=== PATIENT | female | born 1955 | race Caucasian/White ===

== ENCOUNTER 2025-01-20 18:48 | Inpatient (IN) | payer OTHER, SELFPAY ==
[2025-01-20] VITALS (10 sets, daily range): BP systolic 155–211; BP diastolic 76–97; BMI 30.3; BMI 29.5
[2025-01-20 14:43] LABS: % Basophils 0.2 % (0-2); % Immature Granulocytes 0.4 % (0-0.5); % Lymphocytes 12.2 % (20.5-51.1); % Monocytes 6.1 % (1.7-9.3); % Neutrophils 81.1 % (42.2-75.2); Absolute Immature Granulocytes 0.1 10^3/uL (0-0.05); Absolute Neutrophils 13.1 10^3/uL (1.4-6.5); Hematocrit 41.5 % (37.0-47.0); Hemoglobin 13.5 g/dL (12.0-16.0); Mean Corp Hgb Conc. 32.5 g/dL (33.0-37.0); Mean Corpuscular Hgb 23.5 pg (27.0-31.0); Mean Corpuscular Volume 72.2 fL (81.0-99.0); Mean Platelet Volume 9.2 fL (7.4-10.4); Nucleated Red Blood Cells % 0 %; Platelet Count 356 10^3/uL (130-400); Red Blood Cell Count 5.75 10^6/uL (4.20-5.40); Red Cell Dist. Width 15.3 % (11.5-14.5); White Blood Cell Count 16.1 10^3/uL (4.8-10.8)
[2025-01-20 14:55] LABS: INR 1.06; PT 14.1 Sec (11.4-14.6)
[2025-01-20 15:08] LABS: Troponin I 0.021 ng/ml
[2025-01-20 15:17] LABS: ALT (SGPT) 19 U/L (0-35); AST (SGOT) 22 U/L (14-36); Albumin 4.5 g/dl (3.5-5.0); Alkaline Phosphatase 80 U/L (38-126); Blood Urea Nitrogen 33 mg/dl (7-17); Carbon Dioxide 22 mmol/L (22-30); Chloride 108 mmol/L (98-107); Estimated Creatinine Clearance 82 ml/min; Glucose 137 mg/dl (70-99); Potassium 3.1 mmol/L (3.5-5.1); Sodium 141 mmol/L (135-145); Total Bilirubin 1.3 mg/dl (0.2-1.3); Total Protein 6.9 g/dl (6.3-8.2); eGFR > 60.00
[2025-01-20] MEDS: PROTONIX IV 40 MG IV ×2 (15:33→21:02)
[2025-01-20] MEDS: NSS 1000 IV ×2 (15:34→17:22)
--- NOTE | 2025-01-20 15:42 | ED.GENMED ---
History of Present Illness
General
Chief Complaint: Chest Pain
Time Seen by Provider: 01/20/25 15:07
History of Present Illness
History of Present Illness:
69-year-old female with history of diabetes on Ozempic, GERD, hypertrophic cardiomyopathy presenting to the emergency department for midsternal chest discomfort. Patient reports for the past 3 days she has had constant sternal chest pain. She
describes the pain as burning/pressure, feels like something is sitting on her. She has had persistent nausea and vomiting. Denies known coronary artery disease, does report history of hypertrophic cardiomyopathy. Does note some shortness of
breath with the symptoms. She has been unable to keep anything down since onset. Reports that at onset, took an elevated dose of Ozempic. She had previously been on 1 mg, however notes that she was not administering it correctly and some of the
medication was oozing out of the site. She talked to a prescribing nurse who showed her how to inject correctly. When she injected on Monday, it was an elevated dose of 2 mg and she received the full dose. She notes that her is on dosing
schedule and he also was feeling nauseous with vomiting. Reports abdominal surgery history of cholecystectomy and total hysterectomy. Denies additional acute medical complaints
Phy Exam
Physical Exam
Physical Exam:
General: Well-appearing, no clinical signs of dehydration, nontoxic and in no acute distress
HEENT: protecting airway
Neck: appears supple
CV: Normal heart rate, regular rhythm
Resp: No accessory muscle use, no increased work of breathing, lungs clear to auscultation bilaterally
Abd: Soft and non-distended, mild tenderness to the epigastric abdomen
Extremities: No deformities, no swelling
Neuro: alert, no focal neurologic deficit
: deferred
Rectal: deferred
Psych: Normal affect
Skin: Intact
Scores
Heart Score for Chest Pain Patients
STEMI patient?: No
History: Slightly or Non-Suspicious
ECG: Nonspecific Repolarization
Age: >/= 65 years
Risk Factors: 1 or 2 Risk Factors
Troponin: </= Normal Limit
Heart Score for Chest Pain Patients: 4
Heart Score Risk: 20.3% MACE over next 6 weeks
Course
Orders/Labs/Results
Orders:
Orders
01/20/25 14:32
Electrocardiogram (*1) Urgent
Reason for Study: Chest Pain
EKG- Treatment ONCE
01/20/25 14:34
Complete Blood Count/With Diff Urgent
Comprehensive Metabolic Panel Urgent
Lipase Urgent
Comment: ADD ON
Prothrombin Time Urgent
Troponin I Urgent
01/20/25 15:23
Add On- LAB Urgent
Tests Added?: lipase
0.9% Sodium Chloride 1000 ml [Nss] 1,000 ml IV BOLUS
Pantoprazole [Protonix IV] 40 mg IV NOW STA
01/20/25 17:00
Potassium Chloride [KCl] 40 meq 0.9% Sodium Chloride 250 ml [Nss] 250 ml IV NOW
01/20/25 17:09
0.9% Sodium Chloride 1000 ml [Nss] 1,000 ml IV BOLUS
Labetalol HCl [Trandate] 20 mg IV NOW STA
Morphine Sulfate 4 mg IV NOW STA
01/20/25 17:30
Electrocardiogram (*1) Urgent
Reason for Study: Chest Pain
Troponin I Urgent
Abnormal Lab Results
01/20/25
14:34
WBC 16.1 H 10^3/uL
(4.8-10.8)
RBC 5.75 H 10^6/uL
(4.20-5.40)
MCV 72.2 L fL
(81.0-99.0)
MCH 23.5 L pg
(27.0-31.0)
MCHC 32.5 L g/dL
(33.0-37.0)
RDW 15.3 H %
(11.5-14.5)
Abs Immat Gran (auto) 0.1 H 10^3/uL
(0-0.05)
Absolute Neuts (auto) 13.1 H 10^3/uL
(1.4-6.5)
Absolute Monos (auto) 1.0 H 10^3/uL
(0.1-0.6)
Neutrophils % 81.1 H %
(42.2-75.2)
Lymphocytes % 12.2 L %
(20.5-51.1)
Potassium 3.1 L mmol/L
(3.5-5.1)
Chloride 108 H mmol/L
(98-107)
BUN 33 H mg/dl
(7-17)
Glucose 137 H mg/dl
(70-99)
01/20/25 14:34
01/20/25 14:34
Vital Signs
Initial and Last Documented VS:
Initial Vital Signs
Temp Pulse Resp BP Pulse Ox
98.7 F 75 20 161/97 98
01/20/25 14:35 01/20/25 14:35 01/20/25 14:35 01/20/25 14:35 01/20/25 14:35
Last Documented Vital Signs
Temp Pulse Resp BP Pulse Ox
98.7 F 75 20 161/97 98
01/20/25 14:35 01/20/25 14:35 01/20/25 14:35 01/20/25 14:35 01/20/25 14:35
MDM/Problems Addressed
MDM/Problems Addressed:
69-year-old female with history of diabetes, GERD, hypertrophic cardiomyopathy presenting for midsternal chest discomfort for the past 4 days. Vital signs are significant for mild hypertension
On exam patient is resting comfortably, no acute distress. Generalized discomfort on palpation to the midepigastric region. EKG reviewed given patient's complaint of chest discomfort. No obvious ischemic abnormality. There is prolonged QTc.
Patient's nausea and vomiting for the past 3 to 4 days, with suspicion for dehydration, possible electrolyte derangement. Patient did receive Zofran en route by medics. Will hold any additional QTc prolonging agents. Lower suspicion for ACS.
Patient notes that symptoms started after taking increased dose of Ozempic. Suspect gastritis versus pancreatitis. Started patient IV fluids, pantoprazole. Plan for laboratory analysis including lipase. Will continue to closely monitor
17:10 -patient's lipase is within normal limits. Mild leukocytosis, however suspect to be reactive from dehydration. Patient also with hypokalemia, suspected to be from dehydration. Patient's blood pressure still very elevated, notes that she has
been able to tolerate her medications for the past 3 days. She is not having any significant symptom relief. Will administer morphine, additional fluids, labetalol for blood pressure control with plan for admission for intractable nausea and
vomiting
*Pulse Oximetry
Patient hypoxic: no
Comment: 98%
*EKG
Interpreted by ED Provider?: Yes
EKG Intrepretation Date: 01/20/25
EKG Intrepretation Time: 15:48
Interpretation: abnormal
Comparison EKG: no comparison EKG present
Heart Rate: 76
Rate: normal
Rhythm: sinus
[place]: normal axis
Interval: long QT
QRS Pattern: normal QRS
Ischemia: no ischemia
*Critical Care Note
Total Time (30-74mins, 75-104mins- exclusive of procedures): Not Applicable
ED Attending Note
-
Portions of this chart may have been created with voice recognition software.� Occasional wrong word or��sound alike� substitutions may have occurred due to the inherent limitations of voice recognition software.
Discharge Plan
Interventions
Interventions:
*Risk Screen - Suicide Last Done: 01/20/25 14:35
*General Assessment Last Done: 01/20/25 14:35
*Neglect/Abuse Screening Last Done: 01/20/25 14:35
ED- Cardiac Assessment Last Done: 01/20/25 14:35
Discharge Date and Time
Print Language: KOREAN
[2025-01-20 15:44] LABS: Lipase 118 U/L (23-300)
[2025-01-20] MEDS: TRANDATE 20 MG IV ×2 (17:23→19:22)
[2025-01-20] MEDS: MORPHINE SULFATE 4 MG IV (17:23)
--- NOTE | 2025-01-20 17:37 | HPS.HSE ---
Family Physician
-
Family Physician:
Chief Complaint
-
Chest pain
History of Present Illness
69-year-old female who started with increasing dose of her Ozempic and started having chest pain Monday. More like a pressure/burning and a 'hot elephant sitting' on her chest. Patient states that she has been on Ozempic for the past 4 to 5 months
but she does not think she was injecting it the right way. On Monday her dose was increased to 2 mg and she took the first dose the right way. Patient thinks since she was not getting the lower doses properly this must have been too much for her.
She started vomiting and had acid reflux symptoms. Also started with chest pain. Stated that she has not been able to keep any of her medicines down.
Patient has a history of HOCM and was on Camzyos for 6 months when she was on a free trial. She did not like the weight made her feel dizzy. She she was following up with Dr. Aldana and was referred Dr. Garcia who is a HOCM specialist and runs
a clinic ( [facility]). Patient has been on metoprolol 50 mg which she thinks she could not keep down because of the vomiting.
Medical History
Past Medical History
Past Medical History: Reports Other
Additional Past Medical History:
HOCM, hypertension, hyperlipidemia, GERD, diabetes, anxiety and depression
Past Surgical History: Reports Other
Additional Past Surgical History:
Cholecystectomy, hysterectomy, parathyroidectomy
Social History
Tobacco: Former Smoker (quit 40 years ago)
Alcohol: None
Drug: None
Personal:
Living: With Family
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
Family History
Family History: Cancer (Mother lung cancer) and Other (Father with history of CHF)
Allergies / Home Medications
Allergies reflects when Allergies were last updated in [facility].
Home Medications with original date entered in [facility]
Allergy/Medication List:
Allergies
Allergy/AdvReac Type Severity Reaction Status Date / Time
No Known Allergies Allergy Verified 01/20/25 14:32
Home Medications
Lactobac no.2-Bifidobac no.1-S. thermo 112.5 billion cell capsule (Visbiome) 1 cap PO DAILY 01/20/25
atorvastatin 10 mg tablet (Lipitor) 10 mg PO HS 01/20/25
bupropion HCl 300 mg 24 hr tablet, extended release (Wellbutrin XL) 300 mg PO DAILY 01/20/25
citalopram 10 mg tablet (Celexa) 10 mg PO HS 01/20/25
meloxicam 15 mg tablet 15 mg PO BIDPRN PRN MILD PAIN 01/20/25
metoprolol succinate 50 mg tablet,extended release 24 hr (Toprol XL) 50 mg PO DAILY 01/20/25
semaglutide 1 mg/dose (4 mg/3 mL) subcutaneous pen injector (Ozempic) 1 mg SC FR 01/20/25
therapeutic multivitamin 1 tab PO DAILY 01/20/25
Review of Systems
-
A 12 point ROS was completed and negative except as noted: Yes
Cardiac: Reports Chest Pain
Abdomen/GI: Reports Abdominal Pain, Nausea and Vomiting
Neurological: Denies Headache, Weakness or Numbness
Physical Exam
Vital Signs
Vital Signs
Temp Pulse Resp BP Pulse Ox
98.7 F 72 12 211/84 98
01/20/25 14:35 01/20/25 17:00 01/20/25 17:00 01/20/25 17:00 01/20/25 17:00
Physical Exam
General: Conversant
Respiratory: Clear
Cardiac: S1/S2, Regular Rhythm and Murmur (apex)
GI: Soft and Tender (epigastric )
Musculoskeletal: No Edema
Neuro: AO x 3 and Nonfocal/grossly intact
Laboratory Results
-
01/20/25 14:34
01/20/25 14:34
Laboratory Results
PT 14.1 Sec (11.4-14.6) 01/20/25 14:34
INR 1.06 01/20/25 14:34
Total Bilirubin 1.3 mg/dl (0.2-1.3) 01/20/25 14:34
AST 22 U/L (14-36) 01/20/25 14:34
ALT 19 U/L (0-35) 01/20/25 14:34
Alkaline Phosphatase 80 U/L (38-126) 01/20/25 14:34
Troponin I 0.021 ng/ml 01/20/25 14:34
Lipase 118 U/L (23-300) 01/20/25 14:34
Data Reviewed
-
Medical Tests (Nuc Med, Echo, EKG etc): Image Personally Visualized and interpreted (EKG-sinus rhythm, QTc 537, left atrial enlargement)
Impression/Plan
-
IMPRESSION/PLAN:
# Chest pain/epigastric pain
With elevated blood pressure will get a CTA chest and abdomen
Follow repeat EKG and troponin
Admit to stepdown
# Intractable Nausea and vomiting
Possibly secondary to Ozempic
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
Last endoscopy was 4-5 years ago
Continue PPI twice daily and Pepcid
Advised to stop meloxicam
Would not use any QTc prolonging medicines for antinausea.
Unfortunately we do not have many choices but to use Tigan.
# Hypertensive urgency
Likely secondary to inability to keep medicines down and stress
Give another dose of labetalol
Avoid vasodilators with HOCM
If not getting better may need a labetalol drip
Increase metoprolol to 50 twice daily per discussion with cardiology
# Prolonged QTc
Replace potassium
Check magnesium-added on
Hold Celexa
Repeat EKG noted
One more ordered for later.
Avoid QTc prolonging medicines
# Hocm
Outpatient [employer] Dr. Aldana at [facility]
HOCM specialist Dr. Garcia [facility]
Patient was on Camzyos for a trial and then could not afford once that ran out.
Patient also felt that it was not helping her much and that it was making her dizzy.
She has been only on metoprolol
Check echo
Get OP Records
Cardiology evaluation
# Leukocytosis likely stress reaction from vomiting-follow
# Hypokalemia-replace potassium IV
# Hyperlipidemia-continue statin
# Diabetes-Hold Ozempic
Accu-Cheks and sliding scale coverage
# Depression-hold Celexa. Continue Wellbutrin for now
# Remote smoking history-quit 40 years ago
# DVT prophylaxis-Lovenox
# Full code
Discussed with cardiology
Time spent over 75 min
[2025-01-20] MEDS: KCL 270 MEQ IV (17:52)
[2025-01-20 18:42] LABS: Troponin I 0.023 ng/ml
--- NOTE | 2025-01-20 19:23 | EDRN ---
Report received, patient back from CT rechecked BP still elevated will give meds that are ordered, updated patient on bed status and will work on getting her to her room, no complaints at this time.
[2025-01-20 19:27] LABS: Magnesium 1.8 mg/dl (1.6-2.3)
--- NOTE | 2025-01-20 19:56 | EDRN ---
Report to Herber Davis in IMU
[2025-01-20] MEDS: D5LR 1000 IV (20:21)
[2025-01-20] MEDS: LIPITOR 10 MG PO (21:00)
[2025-01-20] MEDS: TOPROL XL 50 MG PO (21:00)
[2025-01-20] MEDS: NSS (PRESERVATIVE FREE) 10 ML IV (21:02)
[2025-01-20] MEDS: PEPCID 20 MG IV (21:02)
[2025-01-20] MEDS: NSS (PRESERVATIVE FREE) 8 ML IV (21:02)
[2025-01-20 23:53] LABS: Troponin I 0.022 ng/ml
[2025-01-21] VITALS (14 sets, daily range): BP systolic 109–180; BP diastolic 61–109; BMI 29.5
[2025-01-21] MEDS: TRANDATE 10 MG IV (00:04)
--- NOTE | 2025-01-21 00:32 | PTCARENOTE ---
received patient from ED via stretcher. Patient able to move from stretcher to bed. Patient pleasant and not complaining of pain at this time. Blood pressure is high, see MAR. Patient resting in bed with call gerardo in reach. assessment and vital
signs as charted.
[2025-01-21 05:08] LABS: Hemoglobin 10.9 g/dL (12.0-16.0); Mean Corpuscular Hgb 24.1 pg (27.0-31.0); Mean Corpuscular Volume 72.8 fL (81.0-99.0); Mean Platelet Volume 9.4 fL (7.4-10.4); Platelet Count 281 10^3/uL (130-400); Red Blood Cell Count 4.53 10^6/uL (4.20-5.40); Red Cell Dist. Width 15.3 % (11.5-14.5); White Blood Cell Count 10.9 10^3/uL (4.8-10.8)
[2025-01-21 05:48] LABS: Blood Urea Nitrogen 25 mg/dl (7-17); Calcium 8.2 mg/dl (8.4-10.2); Carbon Dioxide 23 mmol/L (22-30); Chloride 115 mmol/L (98-107); Estimated Creatinine Clearance 95 ml/min; Glucose 114 mg/dl (70-99); Magnesium 1.9 mg/dl (1.6-2.3); Potassium 3.5 mmol/L (3.5-5.1); Sodium 140 mmol/L (135-145); eGFR > 60.00
[2025-01-21 05:57] LABS: TSH 2.35 uIU/ml (0.47-4.68)
--- NOTE | 2025-01-21 07:20 | CON.CAR ---
Addendum entered and electronically signed by Alexis Wesley DO 01/21/25 13:21:
I saw and examined the patient.
The Automobile Body Repairer's note was reviewed and I agree with the note.
Comment:
Plan:
Her chest is atypical for cardiology. Troponin is within normal limits. her EKG does not show ischemic changes.
Her QT is prolonged. Replete potassium magnesium as necessary. Follow QT during hospitalization.
Check echocardiogram to evaluate left ventricular systolic function.
Records requested
She could be considered outpatient ischemic evaluation. A previous treadmill stress test from 2023 was low risk.
Her symptoms may be GI related. Consider GI evaluation of her symptoms.
CTA 01/20/2025 negative for dissection
She continues with beta-harinder for her hypertrophic cardiomyopathy. She was unable to afford Camzyos and it was stopped in August 2024.
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
Continue atorvastatin for hyperlipidemia.
HPI: 69-year-old female with h/o hypertrophic obstructive cardiomyopathy, diagnosed August 2023, hypertension, hyperlipidemia, diabetes mellitus, GERD, anxiety, depression who presents to [facility] ED on 01/20/2025 with substernal chest pain and
associated nausea and vomiting. Chest pain described as sharp/burning sensation. Symptoms started on 01/17/2025 after she increased Ozempic dose. She had 3 day h/o vomitting and nausea and worsened GERD symptoms, with associated worsening chest
pain that became extreme on day of presentation. Also c/o SOB.
She is on Ozempic and increased the dose on Monday01/17/2025 and started vomiting and had acid reflux symptoms with associated chest pain. She had been injecting the medication incorrectly for the past few months so believes she was not receiving
the correct dose prior to Monday.
In regards to her HOCM, was initially found to have a murmur on exam a few years ago. She was referred to a restaurant shift supervisor, Dr. Aldana at [facility], who ordered an echocardiogram that showed HOCM, which was confirmed by cardiac MRI. She was
initially on metoprolol She was referred to a HOCM specialist, Dr Garcia at [facility]. She was started on CAMZIOs, which she continued for 6 months with improvement in LVOT gradients per records from Dr. Garcia.. The cost was going to
increase to $8000 a month after she had been on it for 6 months and she was not able to afford this cost. She also did not feel well on current Camzyos, complaining of dizziness and nausea, and did not want to continue the medication. She
restarted metoprolol when she stopped Camzyos. She was interested in pursuing surgery and was referred to CT surgery with Dr. Alamo. Unclear if she saw him or not.
Original Note:
Consultation
Consultation Request
Date/Time Consultation Requested: 01/20/2025, 1819
Date/Time Consultation Performed: 01/21/2025, 720
Requesting Provider: Dr Triindad
Performing Provider: TILA Pak for [facility] Cardiology
Reason for Consultation: chest pain, HOCM
Medical History
-
Chief Complaint: chest pain
History of Present Illness:
69-year-old female with h/o hypertrophic obstructive cardiomyopathy, diagnosed August 2023, hypertension, hyperlipidemia, diabetes mellitus, GERD, anxiety, depression who presents to [facility] ED on 01/20/2025 with substernal chest pain and associated
nausea and vomitting. Chest pain described as a pressure/burning sensation. Symptoms started on 01/17/2025 after she increased Ozempic dose. She had 3 day h/o vomitting and nausea and worsened GERD symptoms, with associated worsening chest pain
that became extreme on day of presentation. Also c/o SOB.
She is on Ozempic and increased the dose on Monday01/17/2025 and started vomiting and had acid reflux symptoms with associated chest pain. She had been injecting the medication incorrectly for the past few months so believes she was not receiving
the correct dose prior to Monday.
In regards to her HOCM, was initially found to have a murmur on exam a few years ago. She was referred to a restaurant shift supervisor, Dr. Aldana at [facility], who ordered an echocardiogram that showed HOCM, which was confirmed by cardiac MRI. She was
initially on metoprolol She was referred to a HOCM specialist, Dr Garcia at [facility]. She was started on CAMZIOs, which she continued for 6 months with improvement in LVOT gradients per records from Dr. Garcia.. The cost was going to
increase to $8000 a month after she had been on it for 6 months and she was not able to afford this cost. She also did not feel well on current Camzyos, complaining of dizziness and nausea, and did not want to continue the medication. She
restarted metoprolol when she stopped Camzyos. She was interested in pursuing surgery and was referred to CT surgery with Dr. Alamo. Unclear if she saw him or not. She was thought to be low risk for sudden cardiac given age greater
than 60 years old and no traditional sudden cardiac arrest risk factors for SCA with only small amount of LGE on MRI with no aneurysm. She does not have children and there was no role for genetic testing for her her siblings were advised to be
screened with echo/EKG. SBE was advised.
ED workup:
CTA chest/abd: no dissection, no acute pathology, large hiatal hernia
trop 0.021--0.023--0.022
EKG: Normal sinus rhythm, QTc 535
Labs: Potassium 3.1, NA 141, BUN/creatinine 33/0.7, TSH 2.35, hemoglobin 13.5
Past medical history:
HOCM, diagnosed 08/2023
Hypertension
Hyperlipidemia
Diabetes mellitus
GERD
Anxiety
Depression
Hyperparathyroidism
Past Medical History
Past Medical History: Other
Past Surgical History: Cholecystectomy, Gynecological (REGINE) and Other (Parathyroid surgery)
Social History
Tobacco: Former Smoker (quit 40 yrs ago)
Alcohol: None
Drug: None
Personal:
Living: With Family
Employment: Retired
Family History
Family History: Other (Father at 88 with heart failure, mother with history of TAVR, at 84 from lung cancer)
Allergies / Home Medications
Allergy/AdvReac Type Severity Reaction Status Date / Time
No Known Allergies Allergy Verified 01/20/25 14:32
�Medication �Instructions �Recorded �Confirmed �Type
Lactobac no.2-Bifidobac no.1-S. 1 cap PO DAILY 01/20/25 01/20/25 History
thermo 112.5 billion cell capsule
(Visbiome)
atorvastatin 10 mg tablet (Lipitor) 10 mg PO HS 01/20/25 01/20/25 History
bupropion HCl 300 mg 24 hr tablet, 300 mg PO DAILY 01/20/25 01/20/25 History
extended release (Wellbutrin XL)
citalopram 10 mg tablet (Celexa) 10 mg PO HS 01/20/25 01/20/25 History
meloxicam 15 mg tablet 15 mg PO BIDPRN PRN MILD PAIN 01/20/25 01/20/25 History
metoprolol succinate 50 mg 50 mg PO DAILY 01/20/25 01/20/25 History
tablet,extended release 24 hr
(Toprol XL)
semaglutide 1 mg/dose (4 mg/3 mL) 1 mg SC FR 01/20/25 01/20/25 History
subcutaneous pen injector (Ozempic)
therapeutic multivitamin 1 tab PO DAILY 01/20/25 01/20/25 History
Review of Systems
-
History Source: Patient
All other systems: Negative unless noted
Physical Exam
Vital Signs
Temp Pulse Resp BP Pulse Ox
98.0 F 69 14 164/79 100
01/21/25 03:05 01/21/25 06:12 01/21/25 06:12 01/21/25 06:12 01/21/25 06:12
Lab Results
01/21/25 04:25
01/21/25 04:25
Troponin I 0.022 ng/ml 01/20/25 23:14
GEN: No distress, awake, Ox3
HEENT: supple, anicteric, mmm
LUNGS: CTA, no wheezes/rales
CV: Reg, S1/S2, 2/6 ASIM loudest LSB
ABD: soft, BS+, NT/ND
EXT: No edema
NEURO: Gross non-focal
SKIN: No rash
Impression / Plan
-
PCP: Dr. Ilsa Thomas, [facility]
Primary restaurant shift supervisor: Dr. Nilda alva, [facility]
HOCM specialists: Chandu Garcia, [facility],
Impression:
Chest pain
Nausea and vomiting
HOCM
Hypertension
GERD
Diabetes mellitus
Hypokalemia
Previous cardiovascular testing:
Echo 08/23/2024: On Camzyos 5 mg: Normal LV cavity size and hyperdynamic systolic function, LVEF 65%, basal septal LVH 15 mm, mild MR, mild NOLA, LVOT gradient of 11 mmHg at rest and 55 mmHg with Valsalva
Echo 08/2023: Normal LV cavity size with severe LV hypertrophy and hyperdynamic systolic function, LVEF greater than 65% gradient 36 mmHg, with Valsalva 99 mmHg, mild , mild AI, mild MR, small pericardial effusion, normal RV size and function.
Event monitor 02/2024: Normal sinus rhythm, PAC less than 0.1%, PVC 3%
Cardiac MRI 10/09/2023: Asymmetric septal hypertrophy with maximum wall thickness 17 mmHg and basal anterior septum, marked systolic anterior motion of the mitral valve leaflets with flow acceleration in the left ventricular outflow track. LVEF 63%,
late gadolinium enhancement noted at the RV insertion points more prominent at the anterior RV insertion point where the myocardium is thickest. LV extracellular volume is increased and measures 34%, normal RV volume with normal regional systolic
function, LAE, posterior directed jet of mild MR, trace circumferential pericardial effusion
Exercise treadmill stress test 08/2023, low likelihood of myocardial ischemia. Low exercise tolerance less than 5 METS.
Plan:
69-year-old female with h/o hypertrophic obstructive cardiomyopathy, diagnosed August 2023, hypertension, hyperlipidemia, diabetes mellitus, GERD, anxiety, depression who presents to [facility] ED on 01/20/2025 with substernal chest pain and associated
nausea and vomitting. Chest pain described as a pressure/burning sensation. Symptoms started on 01/17/2025 after she increased Ozempic dose. She had 3 day h/o vomitting and nausea and worsened GERD symptoms, with associated worsening chest pain
that became extreme on day of presentation. Also c/o SOB.
ED workup Included CTA chest and abdomen negative for dissection or acute pathology. Troponin detected but low. EKG with normal sinus rhythm with prolonged QT 535 ms, hypokalemia with potassium 3.1, repeat 3.5 after repletion with 40 mEq KCl IV.
1. Chest pain
- Occurred in setting of 3 to 4-day history of nausea and vomiting in setting of Ozempic use
- Troponin detectable but low
- No known history of CAD
-Treadmill stress test 2023 low likelihood CAD
-CTA 01/20/2025 negative for dissection
- EKG nonischemic but QT is prolonged
-Repeat troponin and EKG
-currently CP 95% resolved - rec'd IV Morphine 4 mg in ED
2. HOCM
- Diagnosed August 2023
- Had been on Camzyos for 6 months with improvement in LVOT gradients on med.
- Not able to afford Camzyos and felt poorly on it so stopped 08/2024
- Repeat echo today, already ordered
-Toprol uptitrated to 50 mg twice daily for better blood pressure control,may need to cont to uptitrate
-Follow-up with patient as to whether she saw surgeon regarding candidacy
-Patient reports she previously followed with doctors in [place] because she worked there but that she lives in [place] and now that she is retired she would like to find more local doctors.
- SBE prophylaxis
3. Hypokalemia
- Received 40 mEq KCl IV x 1 01/20/2025, initial K 3.1, up to3.5
-will administer additional KCL 40 meq IV now
-keep K>4, Mag >2 in setting of prolonged QT
-repeat EKG today- I ordered
-repeat BMP, Mag today-I ordered
4. prolonged QT
- QTc 535 ms on EKG 01/20/2025.
- Obtained EKG 08/2024 from previous restaurant shift supervisor which also comments on prolonged QT but I cannot fully interpret the EKG to see length of QT. Also EKG from 03/2024 comments QTc abnl
- EKG 3-day event monitor 02/2024 normal sinus rhythm with no significant arrhythmias, 3% PVCs
- Avoid QT prolonging agents
- Repeat EKG
5. Hyperlipidemia
-on atorvastatin 10 mg daily
-check FLP with morning labs - I ordered
Data Reviewed
-
EKG: Tracing Personally Visualized and interpreted
Labs: Labs Reviewed by me
Old Records: Requested and Reviewed
[2025-01-21] MEDS: WELLBUTRIN XL (24 hour extended release) 300 MG PO (08:49)
[2025-01-21] MEDS: TOPROL XL 50 MG PO ×2 (08:49→20:25)
[2025-01-21] MEDS: PROTONIX IV 40 MG IV ×2 (08:50→20:27)
[2025-01-21] MEDS: NSS (PRESERVATIVE FREE) 8 ML IV ×2 (08:50→20:27)
[2025-01-21] MEDS: PEPCID 20 MG IV ×2 (08:50→20:27)
[2025-01-21] MEDS: NSS (PRESERVATIVE FREE) 10 ML IV ×2 (08:51→20:27)
[2025-01-21] MEDS: KCL 270 MEQ IV (09:04)
--- NOTE | 2025-01-21 09:30 | PTCARENOTE ---
Patient AAOx3, up in chair. Going for echo. VSS. 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 Will closely
monitor.
--- NOTE | 2025-01-21 12:28 | CM ---
CM reviewed chart and met with pt at bedside. Lives with her , 1 story home, 5 [address] from front door, 3[address]STE from garage
Independent in ADLs and personal care at baseline, occasionally uses cane.
Denies financial insecurities, denies VN/SNF hx
Brother listed as emergency contact as her spouse does not have a cell phone.
Per nursing, pt independent throughout room.
PCP: Ilsa Thomas
Pharmacy: [facility]
Plan: Anticipate home, watch for VN/SNF referrals.
--- NOTE | 2025-01-21 12:57 | W.PN.HOSP.TC ---
Today's Communication/Plan
-
Needs more tighter blood pressure control
Await echo
Await cardiology plans
Patient is tolerating diet and no more having GI symptoms.
She is aware that she needs to get EGD done as outpatient. Continue PPI and Pepcid
Assessment / Plan
Assessment / Plan
69-year-old with nausea and vomiting
CTA-no dissection no acute pathology of chest and abdomen. Large hiatal hernia. Prior cholecystectomy. 5 mm nonobstructing left renal stone. Bilateral adrenal masses possibly benign adenomas nonemergent MRI recommended.
# Chest pain/epigastric pain
With elevated blood pressure will get a CTA chest and abdomen
Follow repeat EKG and troponin
Admit to stepdown
# Intractable Nausea and vomiting
Possibly secondary to Ozempic
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
Last endoscopy was 4-5 years ago
Continue PPI twice daily and Pepcid
Advised to stop meloxicam
Would not use any QTc prolonging medicines for antinausea.
Unfortunately we do not have many choices but to use Tigan.
Patient is feeling much better-tolerating a diet
# Hypertensive urgency
Likely secondary to inability to keep medicines down and stress
Avoid vasodilators with HOCM
Increase metoprolol to 50 twice daily
# Prolonged QTc
Replace potassium
Hold Celexa
# Hocm
Outpatient qc tech Dr. Aldana at [facility]
HOCM specialist Dr. Garcia [facility]
Patient was on Camzyos for a trial and then could not afford once that ran out.
Patient also felt that it was not helping her much and that it was making her dizzy.
She has been only on metoprolol
Check echo
Get OP Records-requested
Cardiology evaluation
# Leukocytosis likely stress reaction from vomiting-improving.
# Hypokalemia-replace potassium IV
# Hyperlipidemia-continue statin
# Diabetes-Hold Ozempic
Accu-Cheks and sliding scale coverage
# Depression-hold Celexa. Continue Wellbutrin for now. QTc is getting better
# Remote smoking history-quit 40 years ago
# DVT prophylaxis-Lovenox
# Full code
Discussed with cardiology
Anticipated Discharge: Within 24 hours
Subjective/Interval History
-
Date of Service: January 21, 2025
Objective Data
-
Labs:
Laboratory Results
01/21/25 01/21/25
04:25 14:00
WBC 10.9 H
Hgb 10.9 L
Hct 33.0 L
Plt Count 281 D
Sodium 140 Pending
Potassium 3.5 Pending
Chloride 115 H Pending
Carbon Dioxide 23 Pending
BUN 25 H Pending
Creatinine 0.6 Pending
Glucose 114 H Pending
Calcium 8.2 L Pending
Vital Signs:
Vital Signs
Temp Pulse Resp BP Pulse Ox
97.8 F 85 24 166/83 97
01/21/25 07:05 01/21/25 12:00 01/21/25 12:00 01/21/25 12:00 01/21/25 12:00
[2025-01-21 16:35] LABS: Blood Urea Nitrogen 19 mg/dl (7-17); Calcium 8.8 mg/dl (8.4-10.2); Carbon Dioxide 24 mmol/L (22-30); Chloride 112 mmol/L (98-107); Estimated Creatinine Clearance 95 ml/min; Glucose 117 mg/dl (70-99); Magnesium 1.9 mg/dl (1.6-2.3); Potassium 4.1 mmol/L (3.5-5.1); Sodium 141 mmol/L (135-145); eGFR > 60.00
[2025-01-21 17:47] LABS: Glucose - Point of Care 102 mg/dl (70-99)
[2025-01-21] MEDS: LOVENOX 40 MG SC (17:55)
[2025-01-21] MEDS: LIPITOR 10 MG PO (20:26)
[2025-01-21 21:13] LABS: Glucose - Point of Care 106 mg/dl (70-99)
[2025-01-22] VITALS (10 sets, daily range): BP systolic 143–187; BP diastolic 72–117; BMI 29.5
[2025-01-22] MEDS: D5LR 1000 IV (00:29)
[2025-01-22] MEDS: MELATONIN 5 MG PO (00:47)
[2025-01-22] MEDS: TRANDATE 10 MG IV (05:00)
[2025-01-22 06:01] LABS: HDL Cholesterol 50 mg/dl; LDL Cholesterol, Calculated 60 mg/dl; Total Cholesterol 139 mg/dl (50-199); Triglyceride 149 mg/dl (10-149); Very Low Density Lipoprotein 29 mg/dl (0-30)
[2025-01-22] MEDS: TOPROL XL 50 MG PO (08:36)
[2025-01-22] MEDS: WELLBUTRIN XL (24 hour extended release) 300 MG PO (08:37)
[2025-01-22] MEDS: PROTONIX IV 40 MG IV (08:38)
[2025-01-22] MEDS: NSS (PRESERVATIVE FREE) 10 ML IV (08:38)
[2025-01-22] MEDS: PEPCID 20 MG IV (08:38)
[2025-01-22] MEDS: NSS (PRESERVATIVE FREE) 8 ML IV (08:38)
--- NOTE | 2025-01-22 08:40 | PTCARENOTE ---
Patient received from inventory control coordinator. Patient resting comfortably in bed. AAO, VSS. No events noted overnight. No complaints of pain at this time. IV fluids to be stopped and not renewed. No testing scheduled at this time. Possible discharge
today. Call gerardo in reach.
--- NOTE | 2025-01-22 08:40 | W.PN.CARDCBS ---
Addendum entered and electronically signed by Juan Antonio Alba MD 01/22/25 10:30:
I saw and examined the patient.
The It Lead's note was reviewed and I agree with the note.
Comment:
GEN: No distress, awake, Ox3
HEENT: supple, anicteric, mmm
LUNGS: CTA, no wheezes/rales
CV: Reg, S1/S2, 2/6 syst apex
ABD: soft, BS+, NT/ND
EXT: No edema
NEURO: Gross non-focal
SKIN: No rash
Plan:
Still having chest pains but improved. Will further titrate Toprol to 75 mg p.o. twice daily for goal heart rate of 50 to 60 bpm.
Continue to avoid QT prolonging agents.
Agree with GI evaluation regarding hiatal hernia.
Wean oxygen.
Will arrange outpatient PET/CT stress testing to further evaluate chest pains, but troponins are negative.
Okay for discharge from cardiology standpoint.
Original Note:
Today's Communication / Plan
-
Continue Toprol, but will increase to 75mg BID for better HR control.
Previously on Camzyos but stopped due to cost and feeling poorly.
QTc improved on repeat EKG this AM. Continue to avoid QT prolonging agents.
Will arrange OP follow up and can arrange OP PET/CT stress testing at that time.
Impression / Plan
-
PCP: Dr. Ilsa Thomas ([facility])
Primary frontend engineer: Dr. Munguia ([facility])
HOCM specialists: Chandu Garcia ([facility], )
Impression:
Chest pain
Nausea and vomiting
Prolonged QTc
HOCM
Hypertension
GERD
Diabetes mellitus
Hypokalemia
Event monitor 02/2024: Normal sinus rhythm, PAC less than 0.1%, PVC 3%
Cardiac MRI 10/09/2023: Asymmetric septal hypertrophy with maximum wall thickness 17 mmHg and basal anterior septum, marked systolic anterior motion of the mitral valve leaflets with flow acceleration in the left ventricular outflow track. LVEF 63%,
late gadolinium enhancement noted at the RV insertion points more prominent at the anterior RV insertion point where the myocardium is thickest. LV extracellular volume is increased and measures 34%, normal RV volume with normal regional systolic
function, LAE, posterior directed jet of mild MR, trace circumferential pericardial effusion
Exercise treadmill stress test 08/2023, low likelihood of myocardial ischemia. Low exercise tolerance less than 5 METS.
Echo 08/2023: Normal LV cavity size with severe LV hypertrophy and hyperdynamic systolic function, LVEF greater than 65% gradient 36 mmHg, with Valsalva 99 mmHg, mild , mild AI, mild MR, small pericardial effusion, normal RV size and function.
Echo 08/23/2024: On Camzyos 5 mg: Normal LV cavity size and hyperdynamic systolic function, LVEF 65%, basal septal LVH 15 mm, mild MR, mild NOLA, LVOT gradient of 11 mmHg at rest and 55 mmHg with Valsalva
Echo 01/21/2025: EF 75%, mod-severe LVH w/ more significant basal septal hypertrophy, hyperdynamic LV function, no RWMA, resting LOT gradient is 28 mmHg, with Valsalva is 56 mmHg, mild MR, mild , mod AR, mild TR, estimated PAP 25-30 mmHg.
Plan:
-Presented with chest pain in the setting of nausea and vomiting after taking increased Ozempic dose.
-Troponin within normal limits x 3. No further chest pain noted.
-Echo 01/22 showed EF 75% with no RWMA. LVOT gradient somewhat increased compared to 08/2024, however no longer on Camzyos due to cost.
-Continue Toprol at higher dose 75mg BID. BP elevated this AM and does note some slight headache, follow w/ increasing Toprol dose.
-Consider for OP PET/CT stress testing. Prior stress test in 2023 revealed low likelihood for CAD.
-EKG without acute ischemic changes, however QTc was prolonged at 535 ms. Improved to 475 ms in AM 01/22. Continue to avoid QT prolonging agents.
-Hypokalemia noted on arrival, K improved to 4.1 this AM w/ mag 1.9.
-Continue lipitor 10mg daily. LDL 60 01/22.
-Would like to transition care locally, will arrange cardiac follow up.
HPI: 69-year-old female with h/o hypertrophic obstructive cardiomyopathy, diagnosed August 2023, hypertension, hyperlipidemia, diabetes mellitus, GERD, anxiety, depression who presents to [facility] ED on 01/20/2025 with substernal chest pain and
associated nausea and vomiting. Chest pain described as a pressure/burning sensation. Symptoms started on 01/17/2025 after she increased Ozempic dose. She had 3 day h/o vomiting and nausea and worsened GERD symptoms, with associated worsening
chest pain that became extreme on day of presentation. Also c/o SOB. ED workup Included CTA chest and abdomen negative for dissection or acute pathology. Troponin detected but low. EKG with normal sinus rhythm with prolonged QT 535 ms,
hypokalemia with potassium 3.1, repeat 3.5 after repletion with 40 mEq KCl IV.
Progress Note - Web Design Instructor
Subjective
Date of Service: January 22, 2025
No further chest pain, does have some SOB and AU this AM in the setting of elevated BP.
Objective
Labs:
01/21/25 04:25
01/21/25 15:59
Labs
Hgb 10.9 g/dL (12.0-16.0) L 01/21/25 04:25
Hct 33.0 % (37.0-47.0) L 01/21/25 04:25
Plt Count 281 10^3/uL (130-400) D 01/21/25 04:25
PT 14.1 Sec (11.4-14.6) 01/20/25 14:34
INR 1.06 01/20/25 14:34
Sodium 141 mmol/L (135-145) 01/21/25 15:59
Potassium 4.1 mmol/L (3.5-5.1) 01/21/25 15:59
BUN 19 mg/dl (7-17) H 01/21/25 15:59
Creatinine 0.6 mg/dL (0.6-1.0) 01/21/25 15:59
Glucose 117 mg/dl (70-99) H 01/21/25 15:59
Troponins
01/20/25 01/20/25 01/20/25
14:34 17:56 23:14
Troponin I 0.021 0.023 0.022
Vital Signs and I&O:
Vital Signs
Temp Pulse Resp BP Pulse Ox
98.3 F 67 16 168/84 98
01/22/25 07:05 01/22/25 08:36 01/22/25 06:00 01/22/25 08:36 01/22/25 06:00
Vital Signs
Temp Pulse Resp BP Pulse Ox
98.3 F 67 16 168/84 98
01/22/25 07:05 01/22/25 08:36 01/22/25 06:00 01/22/25 08:36 01/22/25 06:00
Physical Exam
Physical Exam
GEN: No distress, awake, alert, oriented x3
HEENT: supple, anicteric, mmm
LUNGS: CTA b/l, no wheezes/rales
CV: Reg, S1/S2, 2/6 syst murmur
EXT: No clubbing, cyanosis, or edema
NEURO: Gross non-focal
SKIN: Warm, dry, no rash
[2025-01-22 08:46] LABS: Glucose - Point of Care 99 mg/dl (70-99)
[2025-01-22 09:52] LABS: Glycohemoglobin (HgbA1c) 6.5 % (4.0-5.6)
[2025-01-22 12:13] LABS: Glucose - Point of Care 125 mg/dl (70-99)
[2025-01-22] MEDS: LOPRESSOR 25 MG PO (12:33)
--- NOTE | 2025-01-22 12:50 | W.PN.HOSP.TC ---
Addendum entered and electronically signed by Shubham Trinidad MD 01/22/25 13:08:
Discussed with cardiology who would prefer to hold off on Celexa for discharge. To avoid any QT prolonging agents.
Original Note:
Today's Communication/Plan
-
Discharge
Assessment / Plan
Assessment / Plan
69-year-old with nausea and vomiting
CTA-no dissection no acute pathology of chest and abdomen. Large hiatal hernia. Prior cholecystectomy. 5 mm nonobstructing left renal stone. Bilateral adrenal masses possibly benign adenomas nonemergent MRI recommended.
Feeling much better. Tolerating diet. Still with poor appetite likely effects of Ozempic
Cardiovascular system S1-S2 appreciated, systolic murmur at apex
Chest clear to auscultation
Abdomen soft and nontender no epigastric tenderness
Echo 01/21/2025-normal LV size and moderate to severe LV hypertrophy with more significant basal septal hypertrophy. Hyperdynamic LV systolic function. EF 75%. Mild MR. Mild . Moderate AI. Mild TR.
# Chest pain/epigastric pain
Pain resolved
# Intractable Nausea and vomiting
Possibly secondary to Ozempic
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
Last endoscopy was 4-5 years ago
Continue PPI twice daily and Pepcid
Advised to stop meloxicam
She is tolerating diet.
Patient is interested to switch to [facility]. I have sent her information to GI [facility] to schedule an appointment and call the patient.
# Hypertensive urgency
Increase metoprolol to 75 twice daily
# Prolonged QTc
QTc has normalized. Restart Celexa
# Hocm
Outpatient director graphics Dr. Aldana at [facility]
HOCM specialist Dr. Garcia [facility]
Patient was on Camzyos for a trial and then could not afford once that ran out.
Patient also felt that it was not helping her much and that it was making her dizzy.
She has been only on metoprolol
Cardiology evaluation appreciated
# Leukocytosis likely stress reaction from vomiting-improving.
# Hypokalemia-replaced
# Hyperlipidemia-continue statin
# Diabetes-Hold Ozempic
Patient does not want to take Ozempic anymore
Hemoglobin A1c 6.5. She is aware that she needs to follow-up with her primary physician as she may need medicines for diabetes in future
Accu-Cheks and sliding scale coverage
# Depression-restart Celexa. Continue Wellbutrin for now. QTc better
# Remote smoking history-quit 40 years ago
# DVT prophylaxis-Lovenox
# Full code
Discussed with cardiology-okay for discharge
Discussed with at bedside
Discussed with nursing
More than 30 minutes spent in discharge including
Final examination of the patient
Summarizing hospital stay
Instructions for continuing care to all relevant caregivers
Preparation of discharge records, prescriptions, and referral forms
Total time spent (in minutes): 36 min
Anticipated Discharge: Today
Subjective/Interval History
-
Date of Service: January 22, 2025
Objective Data
-
Vital Signs:
Vital Signs
Temp Pulse Resp BP Pulse Ox
98.3 F 73 16 154/79 99
01/22/25 07:05 01/22/25 12:33 01/22/25 06:00 01/22/25 12:33 01/22/25 09:55
--- NOTE | 2025-01-22 13:08 | W.DS.TRANS ---
Addendum entered and electronically signed by Shubham Trinidad MD 01/22/25 16:56:
Dictation- [id number]
Original Note:
DC Summary - Front Attendant
-
Discharge Instructions:
Discharge Diagnosis/Procedures Chest pain/epigastric pain
Intractable nausea and vomiting secondary to
Ozempic
Hypertension
HCM
Low potassium
High cholesterol
Diabetes
Depression
5 mm nonobstructing left kidney stone
Simple left renal cyst
Hiatal hernia
Diet 2 Gram Sodium,Diabetic, Carb Controlled
Activity As tolerated
Driving Restrictions As prior to admission
Instructions:
Stand-Alone Forms:
Changes to Home Medications: Yes
Discharge Medications:
DC Medications w/original date entered in [employer]
Lactobac no.2-Bifidobac no.1-S. thermo 112.5 billion cell capsule (Visbiome) 1 cap PO DAILY Gastrointestinal Issue 01/20/25
atorvastatin 10 mg tablet (Lipitor) 10 mg PO HS High Cholesterol 01/20/25
bupropion HCl 300 mg 24 hr tablet, extended release (Wellbutrin XL) 300 mg PO DAILY Mental Health/Anxiety 01/20/25
therapeutic multivitamin 1 tab PO DAILY Supplement 01/20/25
famotidine 20 mg tablet (Pepcid) 20 mg PO HS Gastrointestinal issue #30 tabs 01/22/25
metoprolol succinate 25 mg tablet,extended release 24 hr 75 mg (3 x 25 mg) PO BID Blood pressure #60 tabs 01/22/25
pantoprazole 40 mg tablet,delayed release (Protonix) 40 mg PO DAILY Gastrointestinal issue #30 tabs 01/22/25
polyethylene glycol 3350 17 gram oral powder packet 17 g PO DAILY Constipation #0 ea 01/22/25
Home Medication Changes
Mobic and Celexa stopped
Increased metoprolol
Pepcid is new
Pending Results: No
--- NOTE | 2025-01-22 14:31 | PTCARENOTE ---
Patient discharged to home. Discharge instructions reviewed with patient and all questions answered. Patient left via wheel chair to main lobby, left with . Patient left with all known belongings.
--- NOTE | 2025-01-22 17:15 | CM ---
Patient with Dx Intractable Nausea and vomiting Possibly secondary to Ozempic.
Met with patient who was preparing for discharge.
The patient says she feels ready for discharge home today. IMM completed.
Her was in the room for transport home.
No CM d/c needs identified.
Plan home today.
== END 2025-01-22 14:43 | disposition home or self-care (01) | DRG 392 ==
LOC: IMU 18:48
PROVIDERS: Emergency Medicine; Nurse Practitioner; ADMITTING PHYSICIAN Hospitalist; EMERGENCY PHYSICIAN Student in an Organized Health Care Education/Training Program; FAMILY PHYSICIAN Family Medicine; OTHER PHYSICIAN Nuclear Medicine Nuclear Cardiology
DX: R11.2 Nausea with vomiting, unspecified (principal); I42.1 Obstructive hypertrophic cardiomyopathy; T38.3X5A Adverse effect of insulin and oral hypoglycemic [antidiabetic] drugs, initial encounter; R07.89 Other chest pain; I16.0 Hypertensive urgency; R10.13 Epigastric pain; R94.31 Abnormal electrocardiogram [ECG] [EKG]; D72.829 Elevated white blood cell count, unspecified; E11.9 Type 2 diabetes mellitus without complications; F32.A Depression, unspecified; E87.6 Hypokalemia; E78.00 Pure hypercholesterolemia, unspecified; I10 Essential (primary) hypertension; N20.0 Calculus of kidney; N28.1 Cyst of kidney, acquired; K44.9 Diaphragmatic hernia without obstruction or gangrene; I08.3 Combined rheumatic disorders of mitral, aortic and tricuspid valves; K21.9 Gastro-esophageal reflux disease without esophagitis; Z87.891 Personal history of nicotine dependence; Z79.899 Other long term (current) drug therapy
CPT/HCPCS: 71275; 74175; 80048; 80053; 80061; 82962; 83036; 83690; 83735; 84443; 84484; 85025; 85027; 85610; 93005; 93306; 96361; 96374; 96375; 99285; Q9967